=== PATIENT | male | born 1975 | race African-American/Black ===

== ENCOUNTER 2023-11-23 12:29 | Emergency (ER) | payer MEDICAID ==
[~2023-11-23] VITALS: Ht 177.8 cm; Wt 81.6 kg
[2023-11-23 12:31] VITALS: BP 165/97; PULSE 85; RESP 18; TEMP 98.6; O2SAT 97
[2023-11-23] MEDS: KETOROLAC 30 MG/ML VIAL IM ONE (13:04)
[2023-11-23] MEDS ORDERED: IBUP-2213 PO (13:40)
[2023-11-23] MEDS ORDERED: SULF-59 PO (13:40)
[2023-11-23 13:55] VITALS: BP 165/97; PULSE 85; RESP 18; TEMP 98.6; O2SAT 97
== END 2023-11-23 13:55 | disposition home or self-care (01) ==
LOC: MED 12:29
DX: L03.116 Cellulitis of left lower limb (principal); I10 Essential (primary) hypertension; F17.210 Nicotine dependence, cigarettes, uncomplicated; Z98.890 Other specified postprocedural states; Z59.01 Sheltered homelessness
CPT/HCPCS: 73610; 96372; 99283; J1885